=== PATIENT | female | born 1985 | race Caucasian/White ===

== ENCOUNTER 2016-08-02 | Inpatient (IN) | payer BC ==
[2016-08-02] MEDS ORDERED: PRENATAL-U CAPS1 CAP PO (19:47)
[2016-08-02] MEDS ORDERED: FISH OIL 11000 MG/CA PO (19:47)
[2016-08-04] MEDS ORDERED: IBUPROFEN800 M1 PO (19:59)
[2016-08-04] MEDS ORDERED: NORCO 5-325 TA1 EACH PO (20:00)
== END 2016-08-05 13:20 | DRG 775 ==
DX: O40.3XX0 Polyhydramnios, third trimester, not applicable or unspecified (principal); D25.9 Leiomyoma of uterus, unspecified; O99.824 Streptococcus B carrier state complicating childbirth; O36.63X0 Maternal care for excessive fetal growth, third trimester, not applicable or unspecified; O34.13 Maternal care for benign tumor of corpus uteri, third trimester; O70.1 Second degree perineal laceration during delivery; Z3A.40 40 weeks gestation of pregnancy; Z37.0 Single live birth